=== PATIENT | male | born 2005 | race Caucasian/White ===

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

== ENCOUNTER 2024-02-25 15:47 | Emergency (ER) | payer BC, MEDICAID ==
[~2024-02-25] VITALS: Ht 188 cm; Wt 132.3 kg
[~2024-02-25 15:47] MED LIST changes: -QUEtiapine 25mg tablet PO ONE
[2024-02-25 15:56] VITALS: TEMP 97.9
[2024-02-25 18:06] LABS: BASOPHILS % (AUTO) 0.6 % (0-1); EOSINOPHILS # (AUTO) 0.1 X10'3 (0-0.9); EOSINOPHILS % (AUTO) 1.2 % (0-6); HEMATOCRIT 47.5 % (42.0-52.0); HEMOGLOBIN 15.8 g/dl (14.0-17.9); LYMPHOCYTES % (AUTO) 30.9 % (21-51); MEAN CORPUSCULAR HEMOGLOBIN 29.5 PG (27.0-31.0); MEAN CORPUSCULAR HGB CONC 33.3 g/dL (33.0-36.5); MEAN CORPUSCULAR VOLUME 88.8 FL (78-98); MONOCYTES # (AUTO) 0.6 X10'3 (0-0.9); MONOCYTES % (AUTO) 8.8 % (2-12); NEUTROPHILS # (AUTO) 3.7 X10'3 (1.8-7.7); NEUTROPHILS % (AUTO) 58.5 % (42-75); PLATELET COUNT 251 X10'3 (140-440); RED BLOOD COUNT 5.35 X10'6 (4.70-6.10); RED CELL DISTRIBUTION WIDTH 12.5 % (11.5-14.5); WHITE BLOOD COUNT 6.4 X10'3 (4.5-11.0)
[2024-02-25 18:09] VITALS: RESP 16
[2024-02-25 18:22] LABS: ALANINE AMINOTRANSFERASE 67 U/L (12-78); ALBUMIN 4.1 G/DL (3.4-5.0); ALKALINE PHOSPHATASE 134 IU/L (20-180); ANION GAP 10 (8-16); ASPARTATE AMINO TRANSFERASE 23 U/L (10-37); BILIRUBIN,TOTAL 1.3 MG/DL (0.1-1.0); BLOOD UREA NITROGEN 13 MG/DL (7-18); CALCIUM 9.4 MG/DL (8.5-10.1); CHLORIDE 103 MMOL/L (99-107); GLUCOSE 86 MG/DL (70-104); POTASSIUM 3.6 MMOL/L (3.5-5.1); SODIUM 142 MMOL/L (135-145); TOTAL CARBON DIOXIDE 29.5 MMOL/L (24-32); TOTAL PROTEIN 8.1 G/DL (6.4-8.2); eCRCL 138 ML/MIN; eGFR > 90 ML/MIN
[2024-02-25 18:25] LABS: BILIRUBIN,URINE NEGATIVE (Neg); CLARITY,URINE CLEAR (Clear); COLOR,URINE YELLOW (Yellow); GLUCOSE, URINE NEGATIVE (Neg); KETONES,URINE TRACE mg/dl (Neg); LEUKOCYTE ESTERASE ,URINE NEGATIVE (Neg); NITRITES, URINE NEGATIVE (Neg); OCCULT BLOOD,URINE NEGATIVE (Neg); PROTEIN,URINE NEGATIVE (Neg)
[2024-02-25 18:30] LABS: UA COLLECTION TYPE CLN CATCH MIDSTREAM
[2024-02-25 18:32] LABS: LIPASE 19 U/L (16-77); THYROID STIMULATING HORMONE 1.33 ulU/ml (0.34-4.50)
[2024-02-25 19:44] VITALS: BP 122/72; PULSE 82; O2SAT 97
== END 2024-02-25 19:40 | disposition home or self-care (01) ==
LOC: ER 15:48
DX: R10.11 Right upper quadrant pain (principal); Z88.8 Allergy status to other drugs, medicaments and biological substances; Z79.899 Other long term (current) drug therapy
CPT/HCPCS: 36415; 76700; 80053; 81003; 83690; 84439; 84443; 85025; 99284

== ENCOUNTER 2024-03-24 13:12 | Emergency (ER) | payer MEDICAID | END 2024-03-24 14:40 | disposition left against medical advice (07) | LOC: ER 13:13 | DX: J00 Acute nasopharyngitis [common cold] (principal); Z53.21 Procedure and treatment not carried out due to patient leaving prior to being seen by health care provider ==

== ENCOUNTER 2024-03-24 18:54 | Emergency (ER) | payer MEDICAID ==
[~2024-03-24] VITALS: Ht 188 cm; Wt 125.8 kg
[2024-03-24 19:13] VITALS: BP 112/88; PULSE 94; O2SAT 95
[2024-03-24 20:21] VITALS: RESP 16; TEMP 98.5
== END 2024-03-24 20:22 | disposition home or self-care (01) ==
LOC: ER 18:55
DX: J22 Unspecified acute lower respiratory infection (principal); Z20.822 Contact with and (suspected) exposure to COVID-19; Z88.8 Allergy status to other drugs, medicaments and biological substances; Z79.899 Other long term (current) drug therapy
CPT/HCPCS: 36415; 71046; 87502; 87503; 87811; 99284

== ENCOUNTER → 2024-04-27 | Outpatient (CLI) | payer MEDICAID | END | disposition home or self-care (01) | LOC: RAD 08:05 | PROVIDERS: ATTEND Nurse Practitioner Primary Care | DX: N28.1 Cyst of kidney, acquired (principal); K76.0 Fatty (change of) liver, not elsewhere classified; R10.11 Right upper quadrant pain | CPT/HCPCS: 76700 ==